=== PATIENT | female | born 1975 | race Caucasian/White ===

== ENCOUNTER 2018-01-31 22:27 | Emergency (ER) | payer OTHER ==
[~2018-01-31] VITALS: Ht 162.6 cm; Wt 71.2 kg
[2018-01-31 22:38] VITALS: BP 141/79; Ht 162.6 cm; Wt 71.2 kg
== END 2018-02-01 00:55 | disposition home or self-care (01) ==
LOC: ED 22:27
DX: R21 Rash and other nonspecific skin eruption (principal)
CPT/HCPCS: J7512; Q0163